=== PATIENT | male | born 1960 | race Caucasian/White ===

== ENCOUNTER 2022-10-25 09:05 | Outpatient (CLI) | payer OTHER, SELFPAY ==
--- NOTE | 2022-10-25 11:30 | NEURO_ITS ---
IMPRESSION: # History of bilateral upper extremity numbness # Evidence of right ulnar neuropathy with slowing across the elbow. # Early changes suggestive of evolving left Carpal Tunnel Syndrome. # Normal EMG/needle exam. # Clinical correlation recommended Motor Nerve Conduction Upper Extremities Median Nerve Conduction Velocity (m/sec) Terminal Latency (msec) Response Voltage(mV) Elbow-Wrist Wrist Elbow Wrist Right 56 3.5 6 4 Left 56 3.8 4 7 Ulnar Nerve Conduction Velocity (m/sec) Terminal Latency (msec) Response Voltage(mV) Above Elbow Below Elbow Wrist Above Elbow Below Elbow Wrist Right 45 55 2.7 3 2 6 Left 54 54 2.3 5 5 6 F-Wave Latency Median (ms) Ulnar (ms) Right 28.6 28.5 Left 29.3 30.3 Sensory Nerve Conduction Upper Extremities Median Nerve Stimulation Terminal Latency (msec) Wrist/Digit Response Voltage (uV) Wrist Right 3.5/3.3 25/34 Left 3.6/3.8 43/21 Ulnar Nerve Stimulation Terminal Latency (msec) Wrist/Digit Response Voltage (uV) Wrist Right 2.8 6 Left 2.8 9 Radial Nerve Terminal Latency (msec) Response Voltage(mV) Right 2.4 19 Left 1.8 19 Left Right Muscles Examined Fibrillation Fasciculation Scarcity Voltage Duration Left Right Left Right Left Right Left Right Left Right Deltoid Biceps X X Brachioradialis Triceps X X Pronator Teres X X Ext Indicis X X Ext Digitorum X X Abd Poll Brev X X 1st Dorsal Interosseus Paraspinals MTDD
== END 2022-10-25 09:06 | disposition home or self-care (01) ==
PROVIDERS: PCP Internal Medicine; Visit Provider Internal Medicine
DX: G56.03 Carpal tunnel syndrome, bilateral upper limbs (principal)
CPT/HCPCS: 95886; 95911

== ENCOUNTER 2023-12-18 06:58 | Day surgery (SDC) | payer OTHER, SELFPAY ==
[2023-11-06 15:04] VITALS: BMI 31.6
[2023-11-12 10:19] VITALS: BMI 32.2
--- NOTE | 2023-12-17 10:47 | P.PNAN_ITS ---
Anes - Initial Pre Proc Eval Procedure: Operation Date: 12/18/23 09:00 Proposed Procedures p Screening Colonoscopy - Braeden Herbert MD Date/Time: 12/17/23 10:47 Surgeon: Braeden Herbert MD Pre Op Diagnosis: Neoplasm Screening Patient Data Age: 63 Gender: M Height: 1.78 m Weight: 102 kg Allergies Allergy/AdvReac Type Severity Reaction Status Date / Time No Known Allergies Allergy Unverified 12/18/23 07:43 Home Medications Medication Instructions Recorded Confirmed Type sodium,potassium,mag sulfates 17.5 See Rx Instructions PO .COMPLEX 11/06/23 12/18/23 Rx gram-3.13 gram-1.6 gram oral soln #354 mL (Suprep Bowel Prep Kit) lorazepam 1 mg tablet 1 mg PO HS 11/12/23 12/18/23 History metformin 500 mg tablet 500 mg PO BIDWMEAL 11/12/23 12/18/23 History paroxetine HCl 20 mg tablet 20 mg PO DAILY 11/12/23 12/18/23 History pravastatin 20 mg tablet 20 mg PO DAILY 11/12/23 12/18/23 History Patient hx anesthesia problems: none Family hx anesthesia problems: none Results Review: All pre-operative results and documents have been reviewed as part of the pre- operative evaluation. [facility] Past Medical History Medical History (Updated 12/18/23 @ 08:09 by Darell Brown DO) Diabetes type 2, controlled Hyperlipidemia TANA (obstructive sleep apnea) cpap Social History Social History Smoking status: Never smoker Alcohol intake: never Substance use: never Substance use type: does not use Living arrangements: with family Spiritual care concerns: No Anes - Eval Final PreProcedure Day of Procedure 12/17/23 10:47 Patient weight: obese Heart: regular rate and rhythm Lungs: clear to auscultation Airway: Mallampati scale class II Neurological: alert and oriented Last oral intake: >/= 8 hours ASA classification: III Emergent: no Anesthetic plan: proceed Anesthesia type and monitoring: general GIVS and standard monitoring Results Review: All pre-operative results and documents have been reviewed as part of the pre- operative evaluation. Informed Consent: The patient's anesthetic plan and its attendant risks and benefits were discussed with the patient/family/POA. Questions were solicited and answers provided to the satisfaction of the patient/family/POA.
[2023-12-18 07:44] VITALS: BP 107/81; PULSE 91; RESP 20; TEMP 36.7; O2SAT 96
[2023-12-18 07:59] LABS: Glucose Point of Care 122 mg/dl (65-105)
[2023-12-18] MEDS: LACTATED RINGERS 1,000 ML 150 ML IV CONT (07:59)
--- NOTE | 2023-12-18 08:12 | P.HP_ITS ---
History of Present Illness History of Present Illness Consent: Risks, benefits, and alternatives have been discussed and questions answered. Patient agrees to proceed with procedure. Chief complaint: Neoplasm Screening Narrative: Hosea Bagley is a 63 year old male presents for screening colonoscopy. Patient's current weight tight and bowel movements are normal. Patient denies abdominal pain. He has had no bleeding. Family history noncontributory. Pat crispin reports he did have a prior colonoscopy many years ago. He is somewhat uncertain findings. No records are available to review. Review of Systems Review of Systems: Review of systems noncontributory. [facility] Past Medical History Medical History (Updated 12/18/23 @ 08:13 by Braeden Herbert MD) Diabetes type 2, controlled Hyperlipidemia TANA (obstructive sleep apnea) cpap Social History Social History Smoking status: Never smoker Alcohol intake: never Substance use: never Substance use type: does not use Living arrangements: with family Spiritual care concerns: No Meds Home Medications and Allergies Home Medications Medication Instructions Recorded Confirmed Type sodium,potassium,mag sulfates 17.5 See Rx Instructions PO .COMPLEX 11/06/23 12/18/23 Rx gram-3.13 gram-1.6 gram oral soln #354 mL (Suprep Bowel Prep Kit) lorazepam 1 mg tablet 1 mg PO HS 11/12/23 12/18/23 History metformin 500 mg tablet 500 mg PO BIDWMEAL 11/12/23 12/18/23 History paroxetine HCl 20 mg tablet 20 mg PO DAILY 11/12/23 12/18/23 History pravastatin 20 mg tablet 20 mg PO DAILY 11/12/23 12/18/23 History Allergies Allergy/AdvReac Type Severity Reaction Status Date / Time No Known Allergies Allergy Unverified 12/18/23 07:43 Vital Signs Vital Signs - 24 hr 12/18/23 07:44 Temperature 98.0 F Pulse Rate 91 Respiratory Rate 20 Blood Pressure 107/81 Pulse Oximetry 96 Oxygen Delivery Room Air Exam Narrative: Physical exam reveals patient to be alert. Vital signs HEENT exam is unremarkable. Patient is anicteric. Lungs are clear to auscultation and to percussion. Is without murmur or extra sounds. Abdomen bowel sounds are present soft nontender with no organomegaly. Digital external rectal exam is normal. Assessment and Plan Assessment and plan (1) Encounter for screening colonoscopy: Code(s): Z12.11 - Encounter for screening for malignant neoplasm of colon Status: Acute Assessment and Plan: Patient presents today for screening colonoscopy. He appears to be at average risk for colon polyps.
[2023-12-18 09:23] VITALS: BP 99/68; PULSE 72; RESP 16; O2SAT 96
[2023-12-18 09:33] VITALS: BP 103/81; PULSE 71; RESP 16; O2SAT 96
[2023-12-18 09:43] VITALS: BP 115/85; PULSE 77; RESP 16; O2SAT 96
--- NOTE | 2023-12-18 11:32 | WPDANESPN ---
Anes - Prog Note Post-Op Date/Time: 12/18/23 11:32 Cardiovascular status: normal Respiratory status: normal Airway patency: baseline Mental status: baseline Post-Op hydration status: normal Vital Signs: Last Vital Signs Temp 36.7 C 12/18/23 07:44 Pulse 77 12/18/23 09:43 Resp 16 12/18/23 09:43 BP 115/85 12/18/23 09:43 Pulse Ox 96 12/18/23 09:43 O2 Del Method Room Air 12/18/23 09:43 Pain Score (VAS): 0 I/O: Intake & Output 12/17/23 12/18/23 12/18/23 23:59 07:59 15:59 Intake Total 900 Balance 900 12/18/23 07:56 POC Capillary Glucose 122 H Post-procedural complaints: none Patient Feedback: Patient satisfied with anesthetic care. Other Findings: Patient vital signs back to baseline. Patient denies nausea and vomiting. Patient's pain under control. Patient OK for discharge.
== END 2023-12-18 09:55 | disposition home or self-care (01) ==
PROVIDERS: PCP Internal Medicine; Visit Provider Internal Medicine Gastroenterology
PROC: 0DJD8ZZ Inspection of Lower Intestinal Tract, Via Natural or Artificial Opening Endoscopic (ICD-10-PCS; CPT 45378; principal; 2023-12-18 09:00)
DX: Z12.11 Encounter for screening for malignant neoplasm of colon (principal); K64.8 Other hemorrhoids
CPT/HCPCS: 45378

== ENCOUNTER 2025-03-07 15:16 | Emergency (ER) | payer OTHER, SELFPAY ==
[2025-03-07 15:20] VITALS: BP 127/88; PULSE 89; RESP 20; O2SAT 98
--- NOTE | 2025-03-07 15:43 | ED.URI ---
HPI - URI/Sore Throat General Chief Complaint: Upper Respiratory Infection Stated Complaint: Chest Congestion/Cough Time Seen by Provider: 03/07/25 15:35 Source: patient, RN notes reviewed and old records reviewed Mode of arrival: ambulatory Limitations: no limitations History of Present Illness HPI Narrative: 65 year old male who [facility] with complaints of 3 week duration of runny nose, cough, with phlegm green in color. Patient reports that he has taken DayQuil and NyQuil which did nothing to help his symptoms. He reports that he has been taking lately Zyrtec and Mucinex which has not done anything for symptoms either. Patient reports that he has some sinus pressure in his face also, no known fevers or any body aches. MD elicited complaint: cough and sore throat Onset (ago): week(s) (3 weeks) Consistency: constant Severity: moderate Pain scale (0-10): 4 Able to tolerate fluids by mouth: Yes Treatments prior to arrival: other (DayQuil and NyQuil,Mucinex and Zyrtec) Related Data Home Medications ?Medication ?Instructions ?Recorded ?Confirmed ?Last Taken ?Type lorazepam 1 mg tablet 1 mg PO HS 11/12/23 12/18/23 Unknown History metformin 500 mg tablet 500 mg PO BIDWMEAL 11/12/23 12/18/23 Unknown History paroxetine HCl 20 mg tablet 20 mg PO DAILY 11/12/23 12/18/23 Unknown History pravastatin 20 mg tablet 20 mg PO DAILY 11/12/23 12/18/23 Unknown History Baby Aspirin 03/07/25 Unknown History semaglutide 14 mg tablet (Rybelsus) mg PO 03/07/25 Unknown History Allergies Allergy/AdvReac Type Severity Reaction Status Date / Time No Known Allergies Allergy Verified 03/07/25 15:28 Review of Systems Review of Systems: CONSTITUTIONAL: Reports malaise, no known chills, sweats, or fever. EYES: Denies visual changes, redness, or discharge. ENT: Reports rhinorrhea, congestion, sinus pain,no otalgia and no sore throat. CARDIOVASCULAR: Denies chest pain, palpitations, or edema. RESPIRATORY: Reports cough.? Denies any acute dyspnea. GASTROINTESTINAL: Denies abdominal pain, nausea, vomiting, diarrhea SKIN: Denies rash or itching. MUSCULOSKELETAL: Denies myalgia. NEUROLOGIC: Denies headache. All systems reviewed & are unremarkable except as noted in HPI and below PMFSH Past Medical History Medical History (Updated 03/07/25 @ 16:17 by Radha Kingston NP) Diabetes type 2, controlled TANA (obstructive sleep apnea) cpap Hyperlipidemia Surgical History Surgical History (Updated 03/07/25 @ 16:17 by Radha Kingston NP) History of carpal tunnel surgery of left wrist Social History Social History Smoking status: Never smoker Alcohol intake: never Substance use: never Substance use type: does not use Living arrangements: with family Spiritual care concerns: No Comments At time of signature, agree with nursing past medical, surgical, social and family history. There is no relevant family history pertinent to the presenting complaint Exam Narrative: GENERAL: Well-appearing, well-nourished, and in no acute distress. HEAD: Normocephalic EYES: PERRLA, conjunctivae clear ENT: Nares clear, turbinates edematous and erythematous, clear discharge sinus pressure. Mucous membranes moist. TM pearly chowdary with dull light reflex bilaterally; no tragal tenderness. Oropharynx erythematous without lesions. Tonsils not enlarged and without exudate, no drooling, no hoarseness, no trismus, uvula midline.post nasal drainage NECK: Supple. No lymphadenopathy CHEST: Clear to auscultation, breath sounds equal. No wheezing, rhonchi, rales, or stridor. No respiratory distress, speaks in full sentences.productive cough greenish phlegm, SAO2 98% on room air HEART: Regular rate and rhythm. No murmur heard. SKIN: Warm, dry, no rash. NEURO: Alert and oriented x3. PSYCH: Normal mood and affect Course Course Emergency Course: Patient is aware of diagnosis, understands and agrees to treatment plan.? Anticipatory guidance given.? Patient agrees to follow-up as directed and is aware of reasons to seek care at the emergency department. Portions of this record may have been created with voice recognition software Level of Care: Express Care Visit Vital Signs Vital signs: Vital Signs Pulse Rate 89 03/07/25 15:20 Respiratory Rate 20 03/07/25 15:20 Blood Pressure 127/88 03/07/25 15:20 Pulse Oximetry 98 03/07/25 15:20 Oxygen Delivery Room Air 03/07/25 15:20 Pulse Rate 89 03/07/25 15:20 Respiratory Rate 20 03/07/25 15:20 Blood Pressure 127/88 03/07/25 15:20 Pulse Oximetry 98 03/07/25 15:20 Oxygen Delivery Room Air 03/07/25 15:20 Reviewed MDM - URI/Sore Throat MDM Narrative Medical decision making narrative: Differential diagnosis considered: [place] virus, strep pharyngitis, allergic rhinitis, upper respiratory tract infection, sinusitis, rhinosinusitis, nasopharyngitis. viral pharyngitis, otitis media, otitis externa, pneumonia, bronchitis, viral cough syndrome, viral syndrome, and influenza.? Exam findings show no acute concerns or changes; patient is non-toxic appearing and is in no distress.? Patient is appropriate for outpatient treatment and follow-up. Differential Diagnosis Differential diagnosis: Likely upper respiratory infection, sinusitis, viral infection and other (cough) Medical Records Attestation: I reviewed the patient's medical records. Lab Data Attestation: I reviewed the patient's lab results. Critical Care Time Critical Care Time Critical Care Time: No Discharge Plan Discharge Clinical Impression: Sinusitis, acute Qualifiers: Sinusitis location: pansinusitis Recurrence: non-recurrent Qualified Code(s): J01.40 - Acute pansinusitis, unspecified Patient Disposition: Home Condition: Stable Instructions: Antibiotic Form, Sinusitis (ED) Additional Instructions: Increase fluids especially juices and water [id number] cough and cold medicine of your choice for your symptoms recommend Delsym Zyrtec Claritin or Donna daily heat to the face 20-30 minutes 4-6 times a day for pain Salt water gargles, throat lozenges or throat sprays as desired Antibiotic as directed--finished the medication If your symptoms persist, change or worsen significantly before you can contact your personal physician then please, without delay, go to the emergency department for further evaluation. Follow-up with PCP in 7-10 days or sooner if needed Follow up with PCP soon in regards to your blood pressure which is elevated above threshold for referral. Blood pressure above 120/80 may indicate pre-hypertension. Minimal elevation 127 / 88 Patient Language: Guyanese Prescriptions: New amoxicillin-pot clavulanate 875-125 mg tablet 1 tablet PO Q12H Qty: 20 0RF Rx Instructions: take all doses of oral antibiotics recommend taking probiotic or eating activa yogurt while taking this medication No Action Rybelsus 14 mg tablet PO Baby Aspirin metformin 500 mg tablet 500 mg PO BIDWMEAL paroxetine HCl 20 mg tablet 20 mg PO DAILY pravastatin 20 mg tablet 20 mg PO DAILY lorazepam 1 mg tablet 1 mg PO HS Follow-up/Referrals: Navjot,Holger Rebolledo MD [Primary Care Provider] - Time of Disposition: 15:57 Quality Najma Coma Scale Eyes: Open Verbal: Oriented and Alert Motor: Follows Commands [place] Coma Total Score: 15
--- OUTSIDE RECORDS SUMMARY | 2025-03-07 17:13 | XMS_ITS | Clinical Summary ---
Author Organization [facility] Address Formerly [facility], [facility] [place] [address] Care Team Providers Care Gericare Aide Name Role Phone Gerardo Morfin MD Primary Care Provider [phone] Allergies No known active allergies Medications PARoxetine (PAXIL) 20 MG tablet Take 1 tablet (20 mg total) by mouth daily. Active LORazepam (ATIVAN) 1 MG tablet Take 1 tablet (1 mg total) by mouth every 6 (six) hours as needed. Active metFORMIN (GLUCOPHAGE) 500 MG tablet Take 1 tablet (500 mg total) by mouth 2 (two) times daily with meals. 08/16/2024 Active pravastatin (PRAVACHOL) 20 MG tablet Take 1 tablet (20 mg total) by mouth nightly at bedtime. 08/23/2024 Active RYBELSUS 14 MG Tab Take 14 mg by mouth daily. 08/23/2024 Active Social History Tobacco Use Types Packs/Day Years Used Date Smoking Tobacco: Former Cigarettes Smokeless Tobacco: Former Tobacco Cessation:Counseling Given: Not Answered Alcohol Use Standard Drinks/Week Comments Never 0 (1 standard drink = 0.6 oz pur e alcohol) Sex and Gender Information Value Date Recorded Sex Assigned at Not on file Legal Sex Male 5:35 PM CDT Gender Identity Not on file Sexual Orientation Not on file Last Filed Vital Signs Vital Sign Reading Time Taken Comments Blood Pressure 123/75 09/04/2024 5:43 PM CDT Pulse 98 09/04/2024 5:43 PM CDT Temperature 36.9 C (98.5 F) 09/04/2024 5:43 PM CDT Respiratory Rate 18 09/04/2024 5:43 PM CDT Oxygen Saturation 95% 09/04/2024 5:43 PM CDT Inhaled Oxygen Concentration - - Weight 101.2 kg (223 lb 1.7 oz) 09/04/2024 5:43 PM CDT Height 177.8 cm (5' 10 ) 09/04/2024 5:43 PM CDT Body Mass Index 32.01 09/04/2024 5:43 PM CDT Plan of Treatment Health Maintenance Due Date Last Done Comments Colorectal Cancer Screening Colonoscopy (10 Years) 1961 Annual Physical 02/01/1964 Hepatitis C 1979 DTaP, Tdap and Td Vaccines ( 1 - Tdap) 02/01/1980 Pneumococcal Vaccine: 50+ Years (1 of 1 - PCV) 2011 Zoster Vaccines (1 of 2) 2011 COVID-19 Vaccine (3 - 2023-2 5 season) 2024 02/16/2021, 01/29/2021 RSV Immunization or 60+ Years (1 - 1-dose 75+ series) 02/01/2036 Meningococcal B Vaccine Aged Out No l onger eligible based on patient's age to complete this topic Meningococcal Vaccine Aged Out No libby mary eligible based on patient's age to complete this topic RSV Immunizations Under 20 Months Aged Out No longer eligible b ased on patient's age to complete this topic [place] [address] Care Teams Gericare Aide Relationship Specialty Start Date End Date Gerardo Morfin MD [id number] [place] [id number] PCP - General INTERNAL MEDICINE 09/04/24
--- OUTSIDE RECORDS SUMMARY | 2025-03-07 17:13 | XMS_ITS | Clinical Summary ---
Author Organization [facility] Address [address] [place] [address] Care Team Providers Care Pan Helper Name Role Phone Gerardo Morfin MD Primary Care Provider + Bhavna Jimenez PA Unavailable [phone] Allergies No known active allergies Medications LORazepam (ATIVAN) 1 mg tablet Take 1 tablet (1 mg total) by mouth every 6 (six) hours as needed for anxiety Active PARoxetine (PAXIL) 20 mg tablet Take 1 tablet (20 mg total) by mouth every morning Active ONETOUCH ULTRA BLUE TEST STRIP strip USE STRIP TO CHECK GLUCOSE twice DAILY I 3 9 Active ONETOUCH ULTRA2 METER misc USE TO CHECK GLUCOSE ONCE DAILY 0 9 Active ONETOUCH DELICA LANCETS 33 gauge misc USE 1 TO CHECK GLUCOSE Twice DAILY 3 9 Active blood glucose diagnostic strip 1 each by other route 2 (two) times a day before breakfast and dinner relion prime Active metFORMIN (GLUCOPHAGE) 500 mg tabletIndicatio ns:Type 2 diabetes mellitus with hyperglycemia, without long-term current use of insulin (HCC) Take 1 tablet (500 mg total) by mouth daily with breakfast 90 tablet 1 9 Active pravastatin (PRAVACHOL) 20 mg tablet Take 1 tablet (20 mg total) by mouth every morning 1 Active HYDROcodone-cortez taminophen (Nesbit) 5-325 mg per tabletIndicatio ns:Pain,Do not take on empty stomach Take 1 tablet by mouth every 4 (four) hours as needed for pain Do not taken empty stomach, do not mixed with alcohol or other narcotic pain medications, do not drive after taking 30 tablet Active Additional Information Patient not taking.Reported on 07/31/2023 Active Problems Problem Noted Date Diagnosed Date Chronic anxiety 05/02/2023 05/02/2023 Left carpal tunnel syndrome 05/01/2023 Assessment & Plan (05/01/2023 9:12 AM CDT): Patient has had progressive symptoms despite conservative measures. As such would recommend surgical decompression. As a diabetic the patient does have an increased risks of infection. Will check a hemoglobin A1c. Patient was advised risks of the procedure including infection, wound dehiscence, seroma hematoma formation, neurovascular compromise, keloid formation, contracture, neurovascular compromise, damage to the median nerve recurrent branch of the median nerve, medical and anesthetic risks including is willing to proceed. He will likely be off of work for four weeks pending healing. Carpal tunnel syndrome on left 05/01/2023 Perforation of left tympanic membrane 05/07/2021 Assessment & Plan (08/29/2021 11:36 AM CDT): Avoid ear cleaning techniques Avoid ear candling Consider Hearing Aids Assessment & Plan (05/07/2021 10:36 AM CDT): Hearing test - [facility] Left fat patch myringoplasty Risks and complications discussed including anesthesia, bleeding, infection, hearing loss, scar formation, not healing and recurrence of ear drum perforation, hearing loss or drain clear fluid. 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 03/09/2021 Assessment & Plan (03/09/2021 11:19 AM CDT): Small left ear drum perforation Avoid ear cleaning techniques Avoid water to ears Hearing test - [facility] Follow up in 8 weeks, if left ear drum hole still present will schedule for myringoplasty in the operating room Flonase 2 sprays into each nostril while looking down over the sink, do not sniff in or blow nose after use for at least 30 minutes Screening for malignant neoplasm of colon 2018 Overview (06/23/2019): Added automatically from request for surgery [id number] Type 2 diabetes mellitus wit h hyperglycemia, without long-term current use of insulin 06/11/2019 Assessment & Plan (08/11/2019 1:23 PM CDT): Recently diagnosed diabetes mellitus type 2 06/03/2019 hemoglobin A1c 12% , improved today to 6.4 % Patient drastically improved his lifestyle habits working on low carb diet advised to continue metformin 500 mg oral daily Reviewed patient blood sugar log Patient blood sugars significantly improving 90-120 range Advised to continue to take his medications in keep blood sugar monitoring Strongly advised to start exercising at least start walking 30 minutes every day Pt vision back to baseline , cleared from ophthalmology Pt cleared to go back to work on 08/16/2019 Follow up in 3 months Assessment & Plan (07/13/2019 12:04 PM CDT): Recently diagnosed diabetes mellitus type 2 06/03/2019 hemoglobin A1c 12% Patient drastically improved his lifestyle habits working on low carb diet advised to continue metformin 500 mg oral daily Reviewed patient blood sugar log Patient blood sugars significantly improving 90-120 range Advised to continue to take his medications in keep blood sugar monitoring Strongly advised to start exercising at least start walking 30 minutes every day Patient blurry vision is because of fluctuations in his blood sugars Patient vision is progressively improving but still he continued to have blurry vision that might have for him to work at this point. - patient is restricted to work for next 4 weeks until his more stable with his blood sugars and back to his normal vision - advised to have repeat eye examination in 3 weeks Advised follow-up in 4 weeks with mt Assessment & Plan (06/11/2019 4:20 PM CDT): Transient blurry vision likely from uncontrolled glucose. Vision is now improved. No retinopathy. HA1C per report 12%. Diagnosed 05/2019 Plan Educated pt on ocular complications of diabetes including blurry vision, risk of cataracts and risk of blindness Emphasized the importance of blood glucose and blood pressure control per PCP to minimize ocular complications Recommend repeat MRx when BG control has stabilized more and A1C decreases further. Emphasized yearly dilated eye exam. Patient wishes to follow with his 's eye doctors for glasses and annual exam. Will call [facility] PRN. Resolved Problems Problem Noted Date Diagnosed Date Resolved Date Cubital tunnel syndrome on left 05/01/2023 05/01/2023 Assessment & Plan (05/01/2023 9:09 AM CDT): Patient has had progressive numbness in the hand and secondary weakness. By EMG nerve conduction studies the findings were consistent with carpal tunnel on the left- hand side. Would recommend carpal tunnel release as he is failed respond to conservative measures including splinting. As a diabetic there is an increased risks of wound healing issues would check a hemoglobin A1c. Patient was advised risks of infection, wound dehiscence, seroma hematoma formation, keloid formation, contracture, neurovascular compromise, damage to the median nerve, the recurrent branch of the median nerve, medical and anesthetic risks including is willing to proceed. Immunizations Immunization Administration Dates Next Due Pfizer SARS-CoV-2 Monovalent Vaccination (12+ Yrs) PURPLE 02/16/2021,01/29/2021 Surgical History Surgery Date Site/Laterality Comments COLONOSCOPY 11/17/1990 - 11/16/1991 at 29 years old CARPAL TUNNEL RELEASE Right hand Medical History Medical History Date Comments Anxiety Depression Diabetes mellitus (HCC) Type 2 diabetes mellitus (HCC) Sleep apnea Carpal tunnel syndrome Family History Medical History Relation Name Comments Hypertension Brother Stroke Mother Relation Name Status Comments Brother Mother Social History Tobacco Use Types Packs/Day Years Used Date Smoking Tobacco: Former Smokeless Tobacco: Current Tobacco Cessation:Ready to Q uit: Not Asked; Counseling Given: Not Answered Alcohol Use Standard Drinks/Week Comments Yes 0 (1 standard drink = 0.6 oz pur e alcohol) AUDIT-C Answer Date Recorded Q1: How often do you have a drink containing alc ohol? Never 06/27/2021 Average Number of Drinks Not on file 021 Frequency of Binge Drinking Not on file 06/17 PHQ-2 Answer Date Recorded PHQ-2 Score 0 07/13/2019 Personal Safety Answer Date Recorded Have you ever been in or are you currently in a harmful physical or emotional relationship or is someone making you feel afraid or unsafe? Denies 06/06/2023 Sex and Gender Information Value Date Recorded Sex Assigned at Not on file Legal Sex Male 1:03 PM CDT Gender Identity Not on file Sexual Orientation Not on file Obstetrics History Last Filed Vital Signs Vital Sign Reading Time Taken Comments Blood Pressure 108/70 06/06/2023 11:35 AM CDT Pulse 83 06/06/2023 11:45 AM CDT Temperature 36.2 C (97.2 F) 06/06/2023 11:28 AM CDT Respiratory Rate 21 06/06/2023 11:45 AM CDT Oxygen Saturation 97% 06/06/2023 11:45 AM CDT Inhaled Oxygen Concentration - - Weight 103.9 kg (229 lb) 09/04/2023 9:51 AM CDT Height 177.8 cm (5' 10 ) 09/04/2023 9:51 AM CDT Body Mass Index 32.86 09/04/2023 9:51 AM CDT Plan of Treatment Health Maintenance Due Date Last Done Comments Hepatitis C Screening 1960 DTaP/Tdap/Td Vaccine (1 - Tdap) 02/01/1972 Hepatitis B Screening 1979 Regular Well Visit/Exam 18-64 1979 Pneumococcal vaccine <65 (1 of 2 - PCV) 02/01/1980 Zoster Vaccine (1 of 2) 2011 Dilated Eye Exam 06/11/2020 06/11/2019 Depression Screening 08/11/2020 08/11/2019, 07/13/20 19 Foot Exam 08/11/2020 08/11/2019, 07/13/2019 Covid-19 Vaccine (3 - 2023-2 5 season) 2024 02/16/2021, 01/29/2021 Influenza Vaccine (#1) 2024 Hemoglobin A1C 03/03/2025 09/02/2024, 04/17, 12/29/2023, Additional history exists Albumin Creatinine Ratio, Urine 09/02/2025 09/02/2024, 04/26/2024, 12/29/2023, Additional history exists Lipid Panel 09/02/2025 09/02/2024, 04/17, 12/29/2023, Additional history exists eGFR 09/02/2025 09/02/2024, 04/17, 12/29/2023, Additional history exists Prostate Cancer Screening-PSA 09/02/2026, 09/17/2023, 03/30/2018, Additional history exists Colon Cancer Screening-Colonoscopy 07/06/2029 07/06/2019 Colon Cancer Screening-CT Colonography Discontinued 07/06/2019 Colon Cancer Screening-DNA Stool Discontinued 07/06/20 Colon Cancer Screening-FIT Discontinued 07/06/2019 Colon Cancer Screening-Sigmoidoscopy Discontinued 07/06/2019 Procedures Procedure Name Priority Date/Time Associated Diagnosis Comments EGFR Routine 09/02/2024 4:15 PM CDT HEMOGLOBIN A1C Routine 09/02/2024 4:15 PM CDT LIPID PANEL Routine 09/02/2024 4:15 PM CDT PSA SCREEN Routine 09/02/2024 4:15 PM CDT ALBUMIN CREATININE RATIO, URINE Routine 09/02/2024 4:08 PM CDT COLONOSCOPY 07/06/2019 12:52 PM CDT from Last 3 Months or Most Recently Relevant to Health Maintenance Results * eGFR (09/02/2024 4:15 PM CDT) eGFR 70 >=60 mL/min/1. 73 m2 Comment: Interpretive Data Reference Interval Normal >/= 90 mL/min/1.73m2 Mildly decreased* 60 - 89 mL/min/1.73m2 Mildly to moderately decreased 45 - 59 mL/min/1.73m2 Moderately to severely decreased 30 - 44 mL/min/1.73m2 Severely decreased 15 - 29 mL/min/1.73m2 Kidney Failure < 15 mL/min/1.73m2 *Relative to young adult level Estimated glomerular filtration rate is determined by the 2020 CKD-EPI equation recommended by the National Kidney Foundation (A Unifying Approach to GFR Estimation: Recommendations of the NKF-ASK Task Force on Reassessing the Inclusion of Race in Diagnosing Kidney Disease, JASN 2020). The CKD-EPI equation should not be used for patients with unstable renal function and has not been validated in children and those over 70. Current interpretive data was last reviewed 2021. Blood 09/02/2024 4:15 PM CDT 09/02/2024 4:30 PM CDT Gerardo Morfin MD LAB BLOOD ORDERABLES Fin al Result Performing Organization Address City/[facility] Co de Phone Number [facility] [place]) [address] [facility] [address] * PSA screen (09/02/2024 4:15 PM CDT) PSA-Total 1.28 <=5.40 ng/mL Comment: Interpretive Data AGE SEX REFERENCE INTERVAL 0 minutes-150 years Female None 0 minutes-49 years Male None 50-59 years Male 0-3.90 60-69 years Male 0-5.40 70-79 years Male 0-6.20 80-150 years Male 0-6.20 The Nicole PSA Total assay procedure was used. Results from different manufacturers or methods may not be comparable. Serial testing should be performed using the same method. Current interpretive data last revised 22. Blood 09/02/2024 4:15 PM CDT 09/02/2024 4:30 PM CDT Gerardo Morfin MD LAB BLOOD ORDERABLES Fin al Result [facility] ([place]) [address] [facility] [address] * (ABNORMAL) Hemoglobin A1c (09/02/2024 4:15 PM CDT) Hgb A1C 6.8(H) 4.0 - 5.6 % Estimated Average Glucose 148 mg/dL [facility] ([place]) Comment: The ADA recommends reporting an estimated Average Glucose (eAG) with all Hemoglobin A1c results using the equation derived from a study of 507 normal and diabetic adults. Minority populations were underrepresented and children were not included. (Diabetes Care 31:1408-8954, 2008). The eAG is not equivalent to a fasting glucose. Blood 09/02/2024 4:15 PM CDT 09/02/2024 4:30 PM CDT us Gerardo Morfin MD LAB BLOOD ORDERABLES Fin al Result [facility] ([place]) [address] [facility] [place] [address] * (ABNORMAL) Lipid panel (09/02/2024 4:15 PM CDT) Cholesterol 144 30 - 199 mg/dL Comment: Interpretive Data Ages < or = 19 years Acceptable: <170 mg/dL Borderline high: 170-199 mg/dL High: >or= 200 mg/dL Ages > or = 20 years Desirable: <200 mg/dL Borderline high: 200-239 mg/dL High: >or= 240 mg/dL Literature References: 1. Expert Panel on Integrated Guidelines for Cardiovascular Health and Risk Reduction in Children and Adolescents. Pediatrics 2011;128:S213 2. NCEP Expert Panel. Circulation 2004;110:227 Current Interpretive Data was last revised on 2018. Triglycerides 178(H) <=149 mg/dL [facility] ([place]) Comment: Interpretive Data Ages < or = 9 years Acceptable: <75 mg/dL Borderline high: 75-99 mg/dL High: >or= 100 mg/dL Ages 10 to 20 years Acceptable: <90 mg/dL Borderline high: 90-129 mg/dL High: >or= 130 mg/dL Ages > or = 20 years Desirable: <150 mg/dL Borderline high: 150-199 mg/dL High: 200-499 mg/dL Very high: >or= 499 mg/dL Literature References: 1. Expert Panel on Integrated Guidelines for Cardiovascular Health and Risk Reduction in Children and Adolescents. Pediatrics 2011;128:S213 2. NCEP Expert Panel. Circulation 2004;110:227 Current Interpretive Data was last revised on 2018. HDL 42 >=40 mg/dL [facility] ([place]) Comment: Interpretive Data Ages < or = 19 years Acceptable: >45 mg/dL Borderline low: 40-45 mg/dL Low: <40 mg/dL Ages > or = 20 years Desirable: >or= 60 mg/dL Low: <40 mg/dL Literature References: 1. Expert Panel on Integrated Guidelines for Cardiovascular Health and Risk Reduction in Children and Adolescents. Pediatrics 2011;128:S213 2. NCEP Expert Panel. Circulation 2004;110:227 Current Interpretive Data was last revised on 2018. LDL, calculated 72 <=129 mg/dL [facility] ([place]) Comment: Interpretive Data Ages < or = 19 years Acceptable: <110 mg/dL Borderline high: 110-129 mg/dL High: >or= 130 mg/dL Ages > or = 20 years Optimal: <100 mg/dL Near optimal: 100-129 mg/dL Borderline high: 130-159 mg/dL High: >160 mg/dL Calculated using the Rylan LDL-C estimating equation. This equation was implemented on 2024. Prior to this date LDL-C was estimated using the Friedewald equation. Literature References: 1. Expert Panel on Integrated Guidelines for Cardiovascular Health and Risk Reduction in Children and Adolescents. Pediatrics 2011;128:S213 2. NCEP Expert Panel. Circulation 2004;110:227 3. Rylan Carey et al. DAVID Cardiol. 2020 March 17;5(5):540-548. doi: 10.1001/jamacardio.2020.0013 Current Interpretive Data was last revised on 2024. Non-HDL Cholesterol 102 mg/dL [facility] ([place]) Comment: Interpretive Data Ages < or = 19 years Acceptable: <120 mg/dL Borderline high: 120-144 mg/dL High: >145 mg/dL Ages > or = 20 years When triglycerides are >200 mg/dL, Non-HDL cholesterol is a secondary target of therapy with treatment goals that are 30 mg/dL greater than the LDL cholesterol target. Literature References: 1. Expert Panel on Integrated Guidelines for Cardiovascular Health and Risk Reduction in Children and Adolescents. Pediatrics 2011;128:S213 2. NCEP Expert Panel. Circulation 2004;110:227 Current Interpretive Data was last revised on 2018. Chol/HDL ratio 3 [facility] ([place]) Blood 09/02/2024 4:15 PM CDT 09/02/2024 4:30 PM CDT us Gerardo Morfin MD LAB BLOOD ORDERABLES Fin al Result Performing Organization Address City/[facility] Co de Phone Number [facility] ([place]) [address] [facility] [address] * Albumin Creatinine Ratio, Urine (09/02/2024 4:08 PM CDT) Albumin Ur <12.0 mg/L Comment: Interpretive Data No reference range established. Current interpretive data was last revised 2019. Testing performed by: [address] [address] Creatinine Ur 23.4 mg/dL [facility] ([place]) Comment: Interpretive Data No reference range established. Current interpretive data was last revised 2019. Testing performed by: [address] [address] Albumin Creatinine Ratio, Ur See Comment 1 - 29 [facility] ([place]) Comment: Unable to calculate Testing performed by: [address] [address] Urine 09/02/2024 4:08 PM CDT 09/02/2024 7:19 PM CDT us Gerardo Morfin MD LAB URINE ORDERABLES Fin al Result Performing Organization Address [facility] Co de Phone Number [facility] ([place]) [address] [facility] [address] * COLONOSCOPY (07/06/2019 12:52 PM CDT) Anatomical Region Laterality Modality Other Narrative Procedure Note Roxi Mccallum MD - 07/06/2019 12:[address] [facility] Patient Name: Meredith Contreras Procedure Date: 07/06/2019 12:52 PM Date of : 1960 Admit Type: Outpatient Age: 59 Gender: Male Attending MD: Roxi Mccallum M.D. Room: [facility] ENDOSCOPY ROOM 1 Note Status: Finalized Patient Profile: This is a 59 year old male. No family h/o coloncancer. SCreening. Procedure: Colonoscopy Indications: Screening for colorectal malignant neoplasm, Last colonoscopy: 1990 Referring MD: Gerardo Morfin M.D. Providers: Roxi Mccallum M.D. Impression: - One 6 mm polyp in the distal transverse colon, removed with a cold snare. Resected and retrieved. - The colon was normal otherwise. Recommendation: - Await pathology results. - Continue present medications. - Repeat colonoscopy in 3 - 5 years for screening purposes. Medicines: Monitored Anesthesia Care Complications: No immediate complications. Estimated Blood Loss: Estimated blood loss: none. Procedure: Pre-Anesthesia Assessment: - Prior to the procedure, a History and Physical was performed, and patient medications and allergieswere reviewed. The patient's tolerance of previous anesthesia was also reviewed. The risks and benefitsof the procedure and the sedation options and riskswere discussed with the patient. All questions were answered, and informed consent was obtained. Prior Anticoagulants: The patient has taken no previous anticoagulant or antiplatelet agents. ASA Grade Assessment: II - A patient with mild systemicdisease. After reviewing the risks and benefits, the patientwas deemed in satisfactory condition to undergo the procedure. The benefits, risks and alternatives of theprocedure and sedation were discussed and informed consent was obtained. All questions were answered. Please referto the signed informed consent document in the medical record. The scope was passed under direct vision.The Pediatric Colonoscope [id number]-H190L [id number] was introduced through the anus and advanced to the the cecum, identified by appendiceal orifice andileocecal valve. The bowel preparation used was Miralax. The bowel preparation used was bisacodyl tablets. Bowel prep was administered using a split dose. Thequality of the bowel preparation was good. Findings: The perianal and digital rectal examinations were normal. The cecum appeared normal. A 6 mm polyp was found in the distal transverse colon. The polyp was semi-sessile. The polyp was removed with a cold snare. Resection and retrieval were complete. The descending colon and sigmoid colon were unremarkable. The rectum and retroflexion in the rectum were unremarkable. Electronically signed by Roxi Mccallum M.D. Roxi Mccallum M.D. 07/06/2019 1:34:28 PM Number of Addenda: 0 Note Initiated On: 07/06/2019 12:52 PM Procedure Code(s): --- Professional --- 09367, Colonoscopy, flexible; with removal of tumor(s), polyp(s), or other lesion(s) by snare technique Diagnosis Code(s): --- Professional --- Z12.11, Encounter for screening for malignant neoplasm of colon D12.3, Benign neoplasm of transverse colon (hepatic flexure orsplenic flexure) CPT copyright 2017 [place] [employer]. All rights reserved. The codes documented in this report are preliminary and upon violin repairer reviewmay be revised to meet current compliance requirements. Recognized by the [place] [employer] for promoting quality in endoscopy Roxi Mccallum MD ENDOSCOPY PROCEDURES Final Result from Last 3 Months or Most Recently Relevant to Health Maintenance Insurance [facility] [employer] [employer] [place] [id number] [facility] [employer] [employer] Advance Directives For more information, please contact: [phone] * Full Code (Latest Code Status on File) Date Activated Date Inactivated Comments 07/06/2019 12:15 PM 07/06/2019 6:45 PM Care Teams Pan Helper Relationship Specialty Start Date End Date Gerardo Morfin MD [id number] [facility] [address] [address] PCP - General Internal Medicine 06/18/19 [place] [id number] [address] Physician Hoist Operator Orthopedic Surgery 06/06/23
--- OUTSIDE RECORDS SUMMARY | 2025-03-07 17:13 | XMS_ITS | Referral Summary ---
Author Organization [facility] Address [address] [place] [address] Care Team Providers Care Postal Mail Carrier Name Role Phone Gerardo Morfin MD Primary Care Provider + Bhavna Jimenez PA Unavailable [phone] Allergies No known active allergies Medications LORazepam [...] mouth every morning 1 Active HYDROcodone-cortez taminophen ([place]) 5-325 mg per tabletIndicatio ns:Pain,Do not take [...] (05/07/2021 10:36 AM CDT): Hearing test - [facility] Left fat patch myringoplasty Risks and complications [...] Avoid water to ears Hearing test - [facility] Follow up in 8 weeks, if left [...] Avoid water to ears Hearing test - [facility] Follow up in 8 weeks, if left ear drum hole still present will schedule for myringoplasty in the operating room Flonase 2 sprays into each nostril while looking down over the sink, do not sniff in or blow nose after use for at least 30 minutes Screening for malignant neoplasm of colon 2018 Overview (06/23/2019): Added automatically from request for surgery [id number] Type 2 diabetes mellitus wit h hyperglycemia, [...] weeks Advised follow-up in 4 weeks with tn Assessment & Plan (06/11/2019 4:20 PM CDT): [...] SARS-CoV-2 Monovalent Vaccination (12+ Yrs) PURPLE 02/16/2021,01/29/2021 Social History Tobacco Use Types Packs/Day Years [...] 09/04/2023 9:51 AM CDT Plan of Treatment Not on file Procedures Procedure Name Priority Date/Time Associated Diagnosis [...] ORDERABLES Fin al Result Performing Organization Address City/[facility] Co de Phone Number [facility] ([place]) [address] [facility] [place] [address] * PSA screen (09/02/2024 4:15 PM CDT) [...] ORDERABLES Fin al Result Performing Organization Address City/[facility] Co de Phone Number [facility] [place]) [address] [facility] [place] [address] * (ABNORMAL) Hemoglobin A1c (09/02/2024 4:15 PM CDT) Hgb A1C 6.8(H) 4.0 - 5.6 % Estimated Average Glucose 148 mg/dL [facility] ([place]) Comment: The ADA recommends reporting an estimated Average Glucose (eAG) with all Hemoglobin A1c results using the equation derived from a study of 507 normal and diabetic adults. Minority populations were underrepresented and children were not included. (Diabetes Care 31:0116-2439, 2008). The eAG is not equivalent to a fasting glucose. Blood 09/02/2024 4:15 PM CDT 09/02/2024 4:30 PM CDT us Gerardo Morfin MD LAB BLOOD ORDERABLES Fin al Result [facility] ([place]) [address] [facility] [place] [address] * (ABNORMAL) Lipid panel (09/02/2024 4:15 PM [...] last revised on 2018. Chol/HDL ratio 3 [facility] ([place]) Blood 09/02/2024 4:15 PM CDT 09/02/2024 4:30 PM CDT us Gerardo Morfin MD LAB BLOOD ORDERABLES Fin al Result Performing Organization Address City/[facility]/ZIP Co de Phone Number [facility] ([place]) [address] [facility] [place] [address] * Albumin Creatinine Ratio, Urine (09/02/2024 4:08 PM CDT) Albumin Ur <12.0 mg/L Comment: Interpretive Data No reference range established. Current interpretive data was last revised 2019. Testing performed by: [address] [address] Creatinine Ur 23.4 mg/dL [facility] ([place]) Comment: Interpretive Data No reference range established. Current interpretive data was last revised 2019. Testing performed by: [address] [address] Albumin Creatinine Ratio, Ur See Comment 1 - 29 [facility] ([place]) Comment: Unable to calculate Testing performed by: [address], [address] Urine 09/02/2024 4:08 PM CDT 09/02/2024 7:19 PM CDT us Gerardo Morfin MD LAB URINE ORDERABLES Fin al Result Performing Organization Address City/[facility]/ZIP Co de Phone Number [facility] ([place]) [address] [facility] [place] [address] * COLONOSCOPY (07/06/2019 12:52 PM CDT) Anatomical Region Laterality Modality Other Narrative Procedure Note Roxi Mccallum MD - 07/06/2019 12:52 PM CDT [facility] Patient Name: Meredith Contreras Procedure Date: 07/06/2019 12:52 PM Date of : 1960 Admit Type: Outpatient Age: 59 Gender: Male Attending MD: Roxi Mccallum M.D. Room: [facility] 1 Note Status: Finalized Patient [...] passed under direct vision.The Pediatric Colonoscope [id number] was introduced through the anus and advanced [...] 12:52 PM Procedure Code(s): --- Professional --- 02059, Colonoscopy, flexible; with removal of tumor(s), polyp(s), or other lesion(s) by snare technique Diagnosis Code(s): --- Professional --- Z12.11, Encounter for screening for malignant neoplasm of colon D12.3, Benign neoplasm of transverse colon (hepatic flexure orsplenic flexure) CPT copyright 2017 [employer]. All rights reserved. The codes documented in this report are preliminary and upon marketing analytics lead reviewmay be revised to meet current compliance requirements. Recognized by the [employer] for promoting quality in endoscopy Roxi Mccallum MD ENDOSCOPY PROCEDURES Final Result from Last 3 Months or Most Recently Relevant to Health Maintenance Insurance [facility] [employer]PPO Address: [address] [place] [id number] [facility] [employer] [facility]O Address: [address] [address] [place] [phone] [facility] [employer] [facility] [facility]/PPO Address: [place] [address] Advance Directives For more information, please contact: [phone] * Full Code (Latest Code Status on File) Date Activated Date Inactivated Comments 07/06/2019 12:15 PM 07/06/2019 6:45 PM Care Teams Postal Mail Carrier Relationship Specialty Start Date End Date Gerardo Morfin MD [address] [address] PCP - General Internal Medicine 06/18/19 [place] [address] [address] Physician Radiologic Electronic Specialist Orthopedic Surgery 06/06/23
== END 2025-03-07 16:02 | disposition home or self-care (01) ==
PROVIDERS: Emergency Provider Registered Nurse; PCP Internal Medicine
DX: J01.40 Acute pansinusitis, unspecified (principal); E11.9 Type 2 diabetes mellitus without complications; Z79.84 Long term (current) use of oral hypoglycemic drugs; E78.5 Hyperlipidemia, unspecified; G47.33 Obstructive sleep apnea (adult) (pediatric)
CPT/HCPCS: 99213; G0463